=== PATIENT | male | born 2000 | race Caucasian/White ===

== ENCOUNTER 2025-01-25 00:05 | Emergency (ER) | payer BC, SELFPAY ==
--- OUTSIDE RECORDS SUMMARY | 2025-01-25 00:07 | XMS REPORT | Continuity of Care Document ---
Author Name Unknown Address [address] [place] [address] [address] [place], [place] [id number] [place] [address] Address [address] [facility] [address] [place] [address] Care Team Providers Care Repairer Veneer Sheet Name Role Phone MARIA L_[place] Attending Clinician Unavailable LENNY Admitting Clinician Unavailable Payers Payer Name Policy Type Policy Number Effective Date Expirati on Date Source [place] [id number] 2014 00:00:00 Encounters Start Date/Time End Date/Time Encounter Type Admission Type Attending Clinicians Care Facility Care Department Encounter ID Source 2021-10-03 12:51:00 2021-10-03 12:51:00 Outpatient MARIA L[facility] [id number] [facility] 2021 04:23:00 2021 04:23:00 Outpatient MARIA L[facility] [id number] [facility]
--- NOTE | 2025-01-25 00:12 | EDPHYS ---
Physician Documentation [facility] Name: Dejon Pacheco Age: 24 yrs Sex: Male : 2000 Arrival Date: 01/25/2025 Time: 00:05 Bed 9 Private MD: ED Physician Conrad Leung HPI: 01/25 03:48 This 24 yrs old Male presents to ER via EMS with complaints of Intoxication. rt 03:48 Patient presents to the ED after reportedly being found unresponsive after drinking rt alcohol, consuming Gummies. Patient subsequently being consciousness with EMS, admits to taking these Gummies and consuming large amount alcohol. Denies other ingestion. Denies any physical complaints at this time, symptoms are mild in severity, no other aggravating or alleviating factors.. Historical: - Allergies: 00:17 No Known Allergies; ha1 - Immunization history:: Adult Immunizations up to date. - Infectious Disease History:: Denies. - Social history:: Smoking status: Patient denies any tobacco usage or history of. Patient uses street drugs, psilocybin. - Family history:: not pertinent. ROS: 03:49 Constitutional: Negative for fever, chills, and weight loss, Cardiovascular: Negative rt for chest pain, palpitations, and edema, Respiratory: Negative for shortness of breath, cough, wheezing, and pleuritic chest pain, Abdomen/GI: Negative for abdominal pain, nausea, vomiting, diarrhea, and constipation, MS/Extremity: Negative for injury and deformity, Skin: Negative for injury, rash, and discoloration, 03:49 Neuro: Positive for loss of consciousness, Negative for altered mental status, Exam: 03:49 Constitutional: This is a well developed, well nourished patient who is awake, alert, rt and in no acute distress. Head/Face: Normocephalic, atraumatic. Chest/axilla: Normal chest wall appearance and motion. Nontender with no deformity. No lesions are appreciated. Cardiovascular: Regular rate and rhythm with a normal S1 and S2. No gallops, murmurs, or rubs. Normal PMI, no JVD. No pulse deficits. Respiratory: Lungs have equal breath sounds bilaterally, clear to auscultation and percussion. No rales, rhonchi or wheezes noted. No increased work of breathing, no retractions or nasal flaring. Abdomen/GI: Soft, non-tender, with normal bowel sounds. No distension or tympany. No guarding or rebound. No evidence of tenderness throughout. Skin: Warm, dry with normal turgor. Normal color with no rashes, no lesions, and no evidence of cellulitis. MS/ Extremity: Pulses equal, no cyanosis. Neurovascular intact. Full, normal range of motion. 03:49 Eyes: Pupils dilated, extraocular muscles are intact. 03:49 Neuro: Awake,, oriented, speech normal, moves all 4 extremities equally, Vital Signs: 00:10 BP 135 / 72; Pulse 98; Resp 17 S; Temp 97.6(T); Pulse Ox 100% on R/A; Weight 67.59 kg; ha1 Height 5 ft. 7 in. ; 00:10 Body Mass Index 23.34 (67.59 kg, 170.18 cm) [facility] MDM: 00:11 Medical Screening Exam initiated rt 03:49 Differential Diagnosis Intoxication, ingestion. Data reviewed: vital signs, nurses rt notes. Test considered but Not performed: Other Details Stable vital signs, awake, alert, oriented, do not suspect, ingestion, no further workup or interventions are indicated at this time, return precautions discussed.. Care significantly affected by the following Social Determinants of Health: Misuse of alcohol and/or drugs. Counseling: I had a detailed discussion with the patient and/or guardian regarding the historical points, exam findings, and any diagnostic results supporting the discharge/admit diagnosis, the need for outpatient follow up, to return to the emergency department if symptoms worsen or persist or if there are any questions or concerns that arise at home. Response to treatment: the patient's symptoms have markedly improved after treatment. Administered Medications: No medications were administered Disposition Summary: 01/25/25 00:12 Discharge Ordered Notes: Location: Home rt Problem: new rt Symptoms: have improved rt Condition: Stable rt Diagnosis - Drug abuse rt - Alcohol intoxication rt Followup: rt - With: Private Physician - When: 2 - 3 days - Reason: Discharge Instructions: - Discharge Summary Sheet rt - Alcohol Intoxication rt Forms: - Medication Reconciliation Form rt - Antibiotic Education rt - Prescription Opioid Use rt - Patient Portal Instructions rt - Leadership Thank You Letter rt Signatures: Shantelle Portillo RN RN ha1 Conrad Leung MD MD rt
--- NOTE | 2025-01-25 00:26 | ER ---
Nurse's Notes [facility] Name: Dejon Pacheco Age: 24 yrs Sex: Male : 2000 Arrival Date: 01/25/2025 Time: 00:05 Bed 9 Private MD: Diagnosis: Drug abuse;Alcohol intoxication Presentation: 01/25 00:10 Chief complaint: EMS states: [facility] CALL[facility] BECAUSE HE SEEM VERY SLEEPY AFTER ha1 HAVING SOME ALCOHOL AND MUSHROOMS GUMMIES. WE GAVE 500mL NS FLUIDS. AOX4 . VITAL SIGNS NORMAL. 00:10 Coronavirus screen: Client denies travel out of the [place] in the last 14 days. Ebola ha1 Screen: No symptoms or risks identified at this time. Initial Sepsis Screen: Does the patient meet any 2 criteria? No. Patient's initial sepsis screen is negative. Does the patient have a suspected source of infection? No. Patient's initial sepsis screen is negative. Risk Assessment: Do you want to hurt yourself or someone else? Patient reports no desire to harm self or others. Onset of symptoms was January 25, 2025. 00:10 Method Of Arrival: EMS: [facility] ha1 00:10 Acuity: TIM 5 ha1 Triage Assessment: 00:10 General: Appears comfortable, Behavior is calm, cooperative. Pain: Denies pain. EENT:. ha1 Neuro: Level of Consciousness is awake, alert, obeys commands, Oriented to person, place, time, situation. Neuro: Speech is normal, Facial symmetry appears normal, Pupils are PERRLA. Cardiovascular: Patient's skin is warm and dry. Respiratory: Airway is patent Respiratory effort is even, unlabored, Respiratory pattern is regular, symmetrical. GI: No signs and/or symptoms were reported involving the gastrointestinal system. : No signs and/or symptoms were reported regarding the genitourinary system. Derm: Skin is pink, warm \T\ dry. Musculoskeletal: Circulation, motion, and sensation intact. Historical: - Allergies: 00:17 No Known Allergies; ha1 - Immunization history:: Adult Immunizations up to date. - Infectious Disease History:: Denies. - Social history:: Smoking status: Patient denies any tobacco usage or history of. Patient uses street drugs, psilocybin. - Family history:: not pertinent. Screenin:10 [facility] ED Fall Risk Assessment (Adult) History of falling in the last 3 months, ha1 including since admission No falls in past 3 months (0 pts) Confusion or Disorientation Yes (5 pts) Intoxicated or Sedated Yes (3 pts) Impaired Gait Yes (1 pt) Mobility Assist Device Used No (0 pt) Altered Elimination Yes (1 pt) Score/Fall Risk Level 3 or more points = High Risk Oriented to surroundings, Maintained a safe environment, Educated pt \T\ family on fall prevention, incl call for assistance when getting out of bed, Assessed \T\ reinforced patient's understanding of fall precautions, Hourly rounding (assess needs \T\ fall precautionary measures) done. 00:25 Abuse screen: Denies threats or abuse. Denies injuries from another. Nutritional ha1 screening: No deficits noted. Tuberculosis screening: No symptoms or risk factors identified. Vital Signs: 00:10 BP 135 / 72; Pulse 98; Resp 17 S; Temp 97.6(T); Pulse Ox 100% on R/A; Weight 67.59 kg; ha1 Height 5 ft. 7 in. ; 00:10 Body Mass Index 23.34 (67.59 kg, 170.18 cm) ha1 ED Course: 00:10 Patient arrived in ED. ha1 00:10 Conrad Leung MD is Attending Physician. rt 00:10 Patient has correct armband on for positive identification. Bed in low position. Call ha1 light in reach. Side rails up X2. Adult w/ patient. 00:10 Provided Education on: PLAN OF CARE . ha1 00:10 Arm band placed on right wrist. ha1 00:10 No provider procedures requiring assistance completed. Maintain EMS IV. Dressing ha1 intact. Site clean \T\ dry. Gauge \T\ site: 20G. LAC. Flushed with 10 mL NS 00:17 Triage completed. ha1 Administered Medications: No medications were administered Medication: 00:25 VIS not applicable for this client. ha1 Outcome: 00:12 Discharge ordered by . rt 00:25 Discharged to home via wheelchair, with family, ha1 00:25 Condition: stable 00:25 Discharge instructions given to patient, family, Instructed on discharge instructions, follow up and referral plans. Demonstrated understanding of instructions, follow-up care, 00:26 Patient left the ED. ha1 Signatures: Shantelle Portillo RN RN ha1 Conrad Leung MD MD rt Corrections: (The following items were deleted from the chart) 00:19 00:10 Chief complaint: EMS states: [facility] BECAUSE HE SEEM VERY SLEEPY ha1 AFTER HAVING SOME ALCOHOL AND MUSHROOMS TUMMIES. WE GAVE SOME IV FLUIDS. AOX4 . VITAL SIGNS NORMAL ha1 04:39 00:10 Chief complaint: EMS states: [facility] BECAUSE HE SEEM VERY SLEEPY ha1 AFTER HAVING SOME ALCOHOL AND MUSHROOMS GUMMIES. WE GAVE SOME IV FLUIDS. AOX4 . VITAL SIGNS NORMAL ha1
[2025-01-25 00:31] VITALS: BP 135/72; TEMP 97.6; O2SAT 100
== END 2025-01-25 00:26 | disposition home or self-care (01) ==
LOC: ER 00:05
DX: F10.129 Alcohol abuse with intoxication, unspecified (principal); F12.90 Cannabis use, unspecified, uncomplicated
CPT/HCPCS: 99283